=== PATIENT | female | born 1975 | race Caucasian/White ===

== ENCOUNTER 2019-02-08 12:18 | Emergency (ER) | payer BC ==
--- NOTE | 2019-02-08 13:02 | EDM.PDOC ---
ED HPI GENERAL MEDICAL PROBLEM - General Stated Complaint: BP check, fluttery chest Time Seen by Provider: 02/08/19 12:30 Source of Information: Reports: Patient History Limitations: Reports: No Limitations - History of Present Illness INITIAL COMMENTS - FREE TEXT/NARRATIVE: This patient presented to the facility initially to have her blood pressure checked. Nursing found an elevation and talked more with the patient who admitted to having a fluttering sensation in her chest today as well. She has a history of "tachycardia" diagnosed with a Holter monitor study in the past. She also takes metoprolol for her blood pressure and is on metformin for POCS. She does not monitor her BP at home although sometimes feels as though it is high. She denies headache, dizziness, nausea, or vomiting. She does have a history of an anxiety disorder and uses ativan on occasion but has not used any recently. Onset: Today, Sudden Improves with: Reports: None Worsens with: Reports: None Associated Symptoms: Reports: No Other Symptoms - Related Data Allergies Allergy/AdvReac Type Severity Reaction Status Date / Time codeine Allergy Stomach Verified 02/08/19 12:20 Upset latex Allergy Rash Verified 02/08/19 12:20 Home Meds: Home Meds Fluconazole [Diflucan] 150 mg PO Q3D PRN 08/01/15 [History] LORazepam [Take Home: LORazepam 0.5 MG, 2 Tab Pack] 0.5 mg PO Q8HR 08/01/15 [ History] Levothyroxine 25 mcg PO DAILY 08/01/15 [History] Metoprolol Tartrate [Lopressor] 12.5 mg PO DAILY 08/01/15 [History] metFORMIN [Glucophage] 1,000 mg PO BID 08/01/15 [History] Omeprazole 20 mg PO DAILY 02/08/19 [History] ED ROS GENERAL - Review of Systems Review Of Systems: See Below Constitutional: Denies: Fever HEENT: Reports: Eye Discharge Respiratory: Denies: Shortness of Breath, Pleuritic Chest Pain, Cough Cardiovascular: Reports: Blood Pressure Problem. Denies: Chest Pain, Dyspnea on Exertion, Lightheadedness GI/Abdominal: Reports: No Symptoms Musculoskeletal: Reports: No Symptoms Skin: Reports: No Symptoms Neurological: Reports: No Symptoms ED EXAM, GENERAL - Physical Exam Exam: See Below Exam Limited By: No Limitations General Appearance: Alert, WD/WN, No Apparent Distress Eye Exam: Bilateral Eye: PERRL Ears: Normal External Exam Nose: Normal Inspection Throat/Mouth: Normal Inspection Head: Atraumatic, Normocephalic Neck: Normal Inspection, Supple, Non-Tender, Full Range of Motion Respiratory/Chest: No Respiratory Distress, Lungs Clear, Normal Breath Sounds Cardiovascular: Regular Rate, Rhythm, No JVD, No Murmur Extremities: Normal Range of Motion Neurological: Alert, Oriented Skin Exam: Warm, Dry, Intact Course - Orders/Labs/Meds Orders: Active Orders 24 hr Category Date Time Status EKG Documentation Completion [RC] ASDIRECTED Care 02/08/19 12:49 Ordered EKG 12 Lead [EK] Stat Ther 02/08/19 12:49 Ordered - Re-Assessments/Exams Free Text/Narrative Re-Assessment/Exam: 02/08/19 13:06 This patient presents with hypertension and an irregular heart beat. The work up in the ED is thus far negative with the exception of occasional PACs on EKG. The differential diagnosis for this is broad and includes life threatening etiologies such as acute coronary syndrome, myocardial infarction, pulmonary embolism, acute aortic dissection, amongst others. Other causes may include pneumonia, pneumothorax, chest wall source, pericarditis, pleurisy, esophageal spasm, etc. No serious etiology for the chest tightness were detected today during this visit. Workup included labs and EKG. The patient admits to feeling anxious when she was experiencing more frequent irregular heart beats and states she does feel better. We discussed an overnight observation admission for cardiac monitoring but the patient felt comfortable in going home. I recommended an an increase in her Metoprolol to 25 mg daily from 12.5 mg daily with daily BP monitoring. Close follow up with primary care is indicated should the discomfort and irregular heart beat continue, as further work up may be performed; this was made clear to the patient, who understands. Departure - Departure Time of Disposition: 13:00 Disposition: Admitted As Inpatient 67 Condition: Good Clinical Impression: PAC (premature atrial contraction), Hypertension Instructions: Premature Atrial Contraction, How to Take Your Blood Pressure, [id number], Hypertension, [id number] - My Orders Last 24 Hours: My Active Orders 02/08/19 12:49 EKG Documentation Completion [RC] ASDIRECTED EKG 12 Lead [EK] Stat - Assessment/Plan Last 24 Hours: My Active Orders 02/08/19 12:49 EKG Documentation Completion [RC] ASDIRECTED EKG 12 Lead [EK] Stat
== END 2019-02-08 14:27 | disposition home or self-care (01) ==
LOC: LB.ED 12:18
DX: I49.1 Atrial premature depolarization (principal); I10 Essential (primary) hypertension; Z88.5 Allergy status to narcotic agent; Z91.040 Latex allergy status; Z79.899 Other long term (current) drug therapy
CPT/HCPCS: 93005; 99284-25

== ENCOUNTER 2019-05-19 18:45 | Emergency (ER) | payer BC, OTHER ==
[2019-05-19] MEDS ORDERED: EPINEPHrine 1:10,000 1 MG/10 ML Syringe ONE ×2 (19:00)
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
== END 2019-05-19 20:40 | disposition expired ==
LOC: LB.ED 18:45
DX: S00-T88 Injury, poisoning and certain other consequences of external causes (principal); I46.8 Cardiac arrest due to other underlying condition; H92.21 Otorrhagia, right ear; Z88.5 Allergy status to narcotic agent; Z91.040 Latex allergy status; Z79.899 Other long term (current) drug therapy; V49.40XA Driver injured in collision with unspecified motor vehicles in traffic accident, initial encounter
CPT/HCPCS: 36680; 92950; 99285; A0425; A0429; J0171; J7030